=== PATIENT | female | born 1980 | race Caucasian/White ===

== ENCOUNTER 2016-12-31 11:31 | Emergency (ER) | payer OTHER ==
[2016-12-31 11:43] VITALS: RESP 16; TEMP 99
[2016-12-31] MEDS ORDERED: DEXAMETHASONE 4 MG TAB PO ONE (12:21)
--- NOTE | 2016-12-31 12:24 | UCPHY ---
H & P Patient Type: Established Chief Complaint Nursing Narrative: C/o productive cough with yellow/brown sputum , chest congestion, fever (100.6F), body aches x 2-3 days. Time Seen by Provider: 12/31/16 12:13 HPI/ROS: CHIEF COMPLAINT: Body aches, fevers cough HISTORY OF PRESENT ILLNESS: Patient is a 36-year-old otherwise healthy female who comes to the Urgent Care complaining of a cough productive of brownish sputum, fevers and body aches and a runny nose for the last 3 days. She has not had any GI or symptoms. No headache. No neck stiffness. Rash. She has been taking guaifenesin, dextromethorphan, Tylenol and ibuprofen at home with moderate improvement. She did receive a flu vaccination this year. REVIEW OF SYSTEMS: Constitutional: See HPI EENTM: See HPI Respiratory: denies: cough, shortness of breath Cardiac: denies: chest pain, irregular heart rate, lightheadedness, palpitations Gastrointestinal/Abdominal: denies: abdominal pain, diarrhea, nausea, vomiting, blood streaked stools Genitourinary: denies: dysuria, frequency, hematuria, pain Musculoskeletal: See HPI Skin: denies: lesions, rash, jaundice, bruising Neurological: denies: headache, numbness, paresthesia, tingling, dizziness, weakness Hematologic/Lymphatic: denies: blood clots, easy bleeding, easy bruising Immunologic/allergic: denies: HIV/AIDS, transplant EXAM: GENERAL: well-nourished and in no acute distress. HEAD: Atraumatic, normocephalic. EYES: Pupils equal round and reactive to light, extraocular movements intact, sclera anicteric, conjunctiva are normal. ENT: TMs normal, nares patent, oropharynx clear without exudates. Moist mucous membranes. NECK: Normal range of motion, supple without lymphadenopathy or JVD. LUNGS: Breath sounds clear to auscultation bilaterally and equal. No wheezes rales or rhonchi. HEART: Regular rate and rhythm without murmurs, rubs or gallops. ABDOMEN: Soft, nontender, normoactive bowel sounds. No guarding, no rebound. No masses appreciated. BACK: No CVA tenderness, no spinal tenderness, step-offs or deformities EXTREMITIES: Normal range of motion, no pitting or edema. No clubbing or cyanosis. NEUROLOGICAL: Cranial nerves II through XII grossly intact. Normal speech, normal gait. 5/5 strength, normal movement in all extremities, normal sensation PSYCH: Normal mood, normal affect. SKIN: Warm, dry, normal turgor, no visible rashes or lesions. Source: Patient Exam Limitations: No limitations - Personal History LMP (Females 10-55): Extended Cycle BCP/Inj Current Tetanus Diphtheria and Acellular Pertussis (TDAP): Yes Tetanus Vaccine Date: within 10 years - Medical/Surgical History Hx Asthma: No Hx Chronic Respiratory Disease: No Hx Diabetes: No Hx Cardiac Disease: No Hx Renal Disease: No Hx Cirrhosis: No Hx Alcoholism: No Hx HIV/AIDS: No Hx Splenectomy or Spleen Trauma: No Other PMH: L foot surgery - Family History Significant Family History: No pertinent family hx - Social History Smoking Status: Never smoked Alcohol Use: Sober Drug Use: None Constitutional: Initial Vital Signs Temperature (C) 37.2 C 12/31/16 11:41 Heart Rate 108 H 12/31/16 11:41 Respiratory Rate 16 12/31/16 11:41 Blood Pressure 154/98 H 12/31/16 11:41 O2 Sat (%) 98 12/31/16 11:41 O2 Delivery Mode Room Air Allergies/Adverse Reactions: No Known Allergies Allergy (Verified 12/31/16 11:43) Home Medications: Medication Instructions Recorded Bcp 12/31/16 Medical Decision Making ED Course/Re-evaluation: Patient is positive for flu A. We discussed Tamiflu. It has been greater than 48 hours. We discussed options for symptomatic treatment. She is requesting steroids for the pain. She also occasionally uses an inhaler which seems to help. She has been prescribed this in the past for bronchitis and exercise- induced asthma. She is happy with this plan and declines further workup or testing at this time. Differential Diagnosis: Partial list of the Differential diagnosis considered include but were not limited to; influenza, viral syndrome, upper respiratory tract infection, bronchitis and although unlikely based on the history and physical exam, I also considered pneumonia, sepsis, meningitis. I discussed these differential diagnoses and the plan with the patient as well as the usual and expected course. The patient understands that the diagnosis is provisional and that in medicine we are not always correct and that further workup is often warranted. Usual and customary warnings were given. All of the patient's questions were answered. The patient was instructed to return to the emergency department should the symptoms at all worsen or return, otherwise to followup with the physician as we discussed. - Data Points Laboratory Results: 12/31/16 11:48 Influenza Typ A,B (DFA) POSITIVE FOR FLU A H (NEGATIVE) Departure - Departure Disposition: Home, Routine, Self-Care Clinical Impression: Influenza A Condition: Fair Instructions: Influenza (ED) Referrals: Megan Matamoros MD [Medical Doctor] - As per Instructions - PQRS PQRS Measurement: Not applicable
[2016-12-31 12:40] VITALS: BP 148/98; PULSE 76; O2SAT 96
== END 2016-12-31 12:40 | disposition home or self-care (01) ==
LOC: CED 11:31
DX: J09.X2 Influenza due to identified novel influenza A virus with other respiratory manifestations (principal)
CPT/HCPCS: 87400-PO; G0463-PO